=== PATIENT | female | born 1955 | race Caucasian/White ===

== ENCOUNTER → 2018-06-28 | Outpatient (CLI) | payer OTHER ==
--- NOTE | 2018-06-28 17:24 | KCIC ---
MR of the left elbow Indication: Left elbow Stat pain. Old injury 2012. Pain posteriorly in recent weeks. Possible bone chip. Technique: Standard multiplanar sequences are obtained. FINDINGS: Artifact: No significant image degradation. Anterior: Biceps tendon and brachialis tendon are intact. Posterior: The triceps tendon insertion is intact. Mild edema anterior and posterior to the insertion. Medial: Common flexor tendon and ulnar collateral ligament are intact. Lateral: Mild signal compatible with tendinosis. No acute tear. Lateral collateral ligament complex appears intact. Fluid: No significant effusion. Joints: No advanced DJD. Bones: No focal lesion. No acute fracture. Soft tissues: No concerning edema or fluid accumulation Ulnar nerve: Unremarkable Impression: 1. Mild soft tissue edema anterior and posterior to the Achilles tendon, compatible with nonspecific inflammation or tendinosis. The tendon is intact. 2. Mild common extensor tendinosis. Electronically signed by: Nate Ferraro MD (06/28/2018 5:21 PM) [facility]
== END | disposition home or self-care (01) ==
LOC: KCIC MRI 14:05
DX: M77.8 Other enthesopathies, not elsewhere classified (principal); R60.0 Localized edema
CPT/HCPCS: 73221